=== PATIENT | female | born 1960 | race Caucasian/White ===

== ENCOUNTER 2025-05-16 03:15 | Observation (INO) | payer MEDICARE, OTHER ==
[~2025-05-16] VITALS: Ht 160 cm; Wt 81.9 kg
[2025-05-16] VITALS (12 sets, daily range): BP systolic 109–181; BP diastolic 85–129
[2025-05-16 03:51] LABS: BASOPHILS ABSOLUTE AUTO 0.06 K/mm3 (0.00-0.23); BASOPHILS PERCENT AUTO 0 % (0-2); EOSINOPHILS ABSOLUTE AUTO 0.06 K/mm3 (0.00-0.68); EOSINOPHILS PERCENT AUTO 0 % (0-6); Hematocrit 46.6 % (33.0-51.0); Hemoglobin 15.4 g/dL (11.5-16.0); IMMATURE GRAN ABSOLUTE AUTO 0.05 K/mm3 (0.00-0.10); IMMATURE GRAN PERCENT AUTO 0 % (0-1); LYMPHOCYTES ABSOLUTE AUTO 1.97 K/mm3 (0.84-5.20); LYMPHOCYTES PERCENT AUTO 13 % (21-46); MONOCYTES ABSOLUTE AUTO 0.70 K/mm3 (0.16-1.47); MONOCYTES PERCENT AUTO 5 % (4-13); Mean Corpuscular HGB Conc 33.0 g/dL (31.5-36.5); Mean Corpuscular Volume 90 fL (80-100); NEUTROPHILS ABSOLUTE AUTO 12.38 K/mm3 (1.96-9.15); NEUTROPHILS PERCENT AUTO 81 % (41-73); NRBC ABSOLUTE 0.00 K/mm3 (0.00-0.02); NRBC Auto 0.0 /100 WBC (0.0-0.2); Platelet Count 343 K/mm3 (150-400); RDW Coefficient Variation 12.5 % (11.7-14.2); RDW Standard Deviation 41.3 fL (35.1-46.3)
[2025-05-16 04:06] LABS: Prothrombin Time Results 11.2 Sec (9.7-11.5)
[2025-05-16 04:08] LABS: Alanine Aminotransfer (ALT/SGP 24.0 U/L (12-78); Albumin, Blood 3.8 g/dL (3.4-5.0); Albumin/Globulin Ratio 1.1 (0.8-1.8); Anion Gap 9.0 mmol/L (3-11); Aspartate Aminotrans (AST/SGOT 51.0 U/L (12-37); Bilirubin, Total 0.6 mg/dL (0.1-1.0); Blood Urea Nitrogen 17.0 mg/dL (8-24); CO2, Blood 25.0 mmol/L (21-32); Calcium, Blood 8.9 mg/dL (8.5-10.1); Chloride, Blood 106.0 mmol/L (98-108); Creatinine, Blood 0.93 mg/dL (0.40-1.00); Globulin, Blood 3.4 g/dL (2.2-4.0); Glucose, Blood 125.0 mg/dL (70-99); Magnesium, Blood 2.2 mg/dL (1.6-2.4); Phosphorus, Blood 3.6 mg/dL (2.5-4.9); Potassium, Blood 4.0 mmol/L (3.5-5.5); Sodium, Blood 136.0 mmol/L (136-145); Total Protein, Blood 7.2 g/dL (6.4-8.2)
[2025-05-16] MEDS ORDERED: FentaNYL Citrate 50 MCG/ML 2 ML Injection IV PRN (05:05)
[2025-05-16] MEDS ORDERED: FLU VACC TS2025(65UP)/MF59C/PF 45 MCG/0.5 ML SYRINGE IM SCH (05:05)
[2025-05-16] MEDS ORDERED: NS 1,000 ML IV SCH (05:10)
[2025-05-16] MEDS ORDERED: Ondansetron HCl 2 MG / ML 2ML Vial IV PRN (05:10)
[2025-05-16] MEDS ORDERED: Heparin Sodium 5000 Units/ML 1ML MDV IV ONE (05:25)
[2025-05-16] MEDS ORDERED: Heparin Sodium,Porcine/0.5 NS 500 ML IV SCH (05:25)
--- NOTE | 2025-05-16 07:10 | NUR ---
ASSUMPTION OF CARE PATIENT ARRIVED FROM ED VIA GURNEY AT 0710, ALL PERSONAL BELONGINGS WITH PATIENT. PATIENT HYPERTENSIVE, REPORTING MODERATE TO SEVERE SUBSTERNAL CHEST PAIN THAT RADIATES POSTERIORLY ACROSS BILATERAL SHOULDERS. TELE IN PLACE, SINUS RHYTHM 80'S. SPO2 >90% ON RA, PATIENT REPORTS SHORTNESS OF BREATH SINCE ARRIVAL TO HOSPITAL. DENIES HEADACHE, N/V. TO MEDICATED PER EMAR FOR CHEST PAIN. PATIENT IS LYING IN BED, BED IN LOWEST POSITION, CALL LIGHT WITHIN REACH.
[2025-05-16] MEDS ORDERED: LOSA50 PO (08:11)
[2025-05-16] MEDS ORDERED: PENVK500 PO (08:12)
[2025-05-16] MEDS ORDERED: Penicillin V P500 MG PO (08:12)
[2025-05-16 11:21] LABS: CHOL/HDL RATIO 2.5; Cholesterol 190 mg/dL (50-200); HDL Cholesterol 75 mg/dL (>39); LDL/HDL RATIO 1.1; Low Density Lipoprotein Chol 80 mg/dL (0-110); Thyroid Stimulating Hormone 3.760 uIU/mL (0.360-4.800); Triglycerides 177 mg/dL (30-160); Very Low Density Lipoprot Chol 35 mg/dL (6-32)
[2025-05-16] MEDS ORDERED: Nitroglycerin 2 MG/20 ML BTL ONE (11:46)
[2025-05-16] MEDS ORDERED: Heparin Sodium 1000 Units/ML 10ML MDV ONE ×3 (11:46→13:06)
[2025-05-16] MEDS ORDERED: NS 1,000 ML IV ONE ×2 (11:46→12:00)
[2025-05-16] MEDS ORDERED: NS 250 ML IV ONE (11:46)
[2025-05-16] MEDS ORDERED: Verapamil HCL 2.5 MG/ML 2ML Injection ONE (11:46)
--- NOTE | 2025-05-16 11:48 | NUR ---
RUBBER INSULATOR PATIENT TO RUBBER INSULATOR ACCOMPANIED BY KIN JONES. VITAL SIGNS OBTAINED, HEPARIN GTT STOPPED, PATIENT IN NO SIGNS OF DISTRESS. PATIENT LEFT UNIT VIA HOSPITAL BED AT 1148.
[2025-05-16] MEDS ORDERED: Ondansetron HCl 2 MG / ML 2ML Vial ONE (11:59)
[2025-05-16] MEDS ORDERED: FentaNYL Citrate 50 MCG/ML 2 ML Injection ONE (12:00)
[2025-05-16] MEDS ORDERED: Midazolam HCl 1MG / ML 2ML Vial ONE (12:00)
[2025-05-16] MEDS ORDERED: HydrALAZINE HCl 20 MG / ML 1ML Vial ONE (12:12)
[2025-05-16] MEDS ORDERED: NS 500 ML IV ONE (12:46)
--- NOTE | 2025-05-16 14:52 | NUR ---
UPDATE PATIENT ARRIVED BACK TO UNIT FROM TEMPORARY OFFICE ASSISTANT AT 1445. RIGHT TR BAND IN PLACE, 8ML AIR IN BAND PER HC RN. RIGHT GROIN SITE, TEGADERM IN PLACE, SOME FIRMNESS FELT AT SITE, AREA IS NONTENDER. PATIENT LYING FLAT, VSS, PATIENT DENIES CHEST PAIN OR PRESSURE, DENIES SHORTNESS OF BREATH.
--- NOTE | 2025-05-16 19:18 | NUR ---
SHIFT SUMMARY PATIENT IS ALERT AND ORIENTED, ABLE TO FOLLOW COMMANDS AND MAKE NEEDS KNOWN. TELE IN PLACE, SINUS RHYTHM 80'S, HYPERTENSIVE THIS SHIFT, NEW ORDERS RECEIVED. SPO2 >90% ON RA. PATIENT TO ANGIO THIS SHIFT, R RADIAL ACCESS SITE, TR BAND RECOVERED, RIGHT FEMORAL SITE. SLIGHT BRUISING NOTED TO RIGHT FEMORAL SITE, AREA SLIGHTLY FIRM. PATIENT DENIES CHEST PAIN AT END OF SHIFT, REPORTS IMPROVED SHORTNESS OF BREATH. NAUSEA POST ANGIO, PATIENT OFFERED MEDICATION PER EMAR, PATIENT REFUSED. PATIENT IS LYING IN BED, BED IN LOWEST POSITION, CALL LIGHT WITHIN REACH.
--- NOTE | 2025-05-16 20:43 | NUR ---
ASSUMPTION OF CARE THIS RN ASSUMED CARE OF PATIENT AT 1900. PT A&O X4. ASSESSED RT FEMORAL AND RADIAL ANGIO SITES WITH DAYSHIFT RN'S AT BEDSIDE DURING SHIFT REPORT. RT FEMORAL SITE WITH SMALL AMOUNT OF UNCHANGED BLEEDING ON DRESSING. MILD UNCHANGED BRUISING AND HEMATOMA NOTED, TENDER WITH PALPATION. PT BEING RAISED IN INCREMENTS OF 15 DEGREES AT THIS TIME. PULSES STRONG DISTALLY. RT RADIAL SITE FULL DEFLATED BY DAYSHIFT. SMALL HEMATOMA AND BRUISING PROXIMAL AND DISTAL TO PUNCTURE SITE. TR BAND REMOVED AT 2014 PER PROTOCOL. TEGADERM PLACED. NO CHANGES TO SITE/HEMATOMAS AT THIS TIME. MILD TENDERNESS WITH PALPATION. WRIST IMMOBILIZER IN PLACE. PT VERBALIZED UNDERSTANDING RESTRICTIONS OF MOVEMENT/BENDING OF WRIST. SR ON MONITOR. ON RA WITH SPO2 >90%. DENIES CHEST PAIN/PRESSURE. AFEBRILE. BP STABLE. BED IN LOWEST POSITION AND CALL LIGHT WITHIN REACH.
[2025-05-17 00:01] VITALS: BP 105/86
[2025-05-17 03:15] VITALS: BP 120/87
--- NOTE | 2025-05-17 04:31 | NUR ---
SHIFT SUMMARY SEE PREVIOUS NOTE PT CONTINUES TO HAVE HEMATOMA TO RT FEMORAL ACCESS SITE. DRESSING C/D/I. BRUISING MORE PRONOUNCED BUT HEMATOMA IS UNCHANGED. RT RADIAL SITE WITH SMALL OOZING ON DRESSING, OTHERWISE C/D/I. SMALL HEMATOMAS DISTAL AND PROXIMAL TO SITE UNCHANGED. BRUISING UNCHANGED. PT REPORTS TENDERNESS TO PALPATION WITH BOTH. ARMBOARD IN PLACE. PT CONTINUES TO VERBALIZE UNDERSTANDING OF RESTRICTIONS. OTHERWISE VSS. NEEDING 1L VIA NC TO MAINTAIN SPO2 >92% WHILE SLEEPING. PT ABLE TO REPOSITION SELF INDEPENDENTLY. AMBULATED TO BATHROOM WELL WITH SBA. DENIED CHEST PAIN/PRESSURE T/O THIS SHIFT. EKG TO BE DONE PRIOR TO SHIFT CHANGE. BED IN LOWEST POSITION AND CALL LIGHT WITHIN REACH. THIS RN WILL REPORT TO ONCOMING DAYSHIFT RN.
[2025-05-17 04:35] LABS: BASOPHILS ABSOLUTE AUTO 0.04 K/mm3 (0.00-0.23); BASOPHILS PERCENT AUTO 0 % (0-2); EOSINOPHILS ABSOLUTE AUTO 0.00 K/mm3 (0.00-0.68); EOSINOPHILS PERCENT AUTO 0 % (0-6); Hematocrit 39.6 % (33.0-51.0); Hemoglobin 13.2 g/dL (11.5-16.0); IMMATURE GRAN ABSOLUTE AUTO 0.06 K/mm3 (0.00-0.10); IMMATURE GRAN PERCENT AUTO 0 % (0-1); LYMPHOCYTES ABSOLUTE AUTO 2.06 K/mm3 (0.84-5.20); LYMPHOCYTES PERCENT AUTO 13 % (21-46); MONOCYTES ABSOLUTE AUTO 1.48 K/mm3 (0.16-1.47); MONOCYTES PERCENT AUTO 10 % (4-13); Mean Corpuscular HGB Conc 33.3 g/dL (31.5-36.5); Mean Corpuscular Volume 88 fL (80-100); NEUTROPHILS ABSOLUTE AUTO 11.88 K/mm3 (1.96-9.15); NEUTROPHILS PERCENT AUTO 77 % (41-73); NRBC ABSOLUTE 0.00 K/mm3 (0.00-0.02); NRBC Auto 0.0 /100 WBC (0.0-0.2); Platelet Count 294 K/mm3 (150-400); RDW Coefficient Variation 12.9 % (11.7-14.2); RDW Standard Deviation 42.0 fL (35.1-46.3)
[2025-05-17 05:01] LABS: Alanine Aminotransfer (ALT/SGP 55.0 U/L (12-78); Albumin, Blood 3.1 g/dL (3.4-5.0); Albumin/Globulin Ratio 1.1 (0.8-1.8); Anion Gap 10.0 mmol/L (3-11); Aspartate Aminotrans (AST/SGOT 376.0 U/L (12-37); Bilirubin, Total 1.0 mg/dL (0.1-1.0); Blood Urea Nitrogen 16.0 mg/dL (8-24); CO2, Blood 23.0 mmol/L (21-32); Calcium, Blood 8.4 mg/dL (8.5-10.1); Chloride, Blood 107.0 mmol/L (98-108); Creatinine, Blood 0.77 mg/dL (0.40-1.00); Globulin, Blood 2.9 g/dL (2.2-4.0); Glucose, Blood 110.0 mg/dL (70-99); Potassium, Blood 3.7 mmol/L (3.5-5.5); Sodium, Blood 136.0 mmol/L (136-145); Total Protein, Blood 6.0 g/dL (6.4-8.2)
[2025-05-17 07:39] VITALS: BP 109/85
[2025-05-17 10:26] LABS: CHOL/HDL RATIO 2.0; Cholesterol 134 mg/dL (50-200); HDL Cholesterol 66 mg/dL (>39); LDL/HDL RATIO 0.7; Low Density Lipoprotein Chol 49 mg/dL (0-110); Triglycerides 95 mg/dL (30-160); Very Low Density Lipoprot Chol 19 mg/dL (6-32)
[2025-05-17 11:16] VITALS: BP 106/65
[2025-05-17] MEDS ORDERED: ASPI81CH PO (11:35)
[2025-05-17] MEDS ORDERED: LIPITOR80 MG PO (11:36)
[2025-05-17] MEDS ORDERED: Carvedilol12.5 MG PO (11:36)
[2025-05-17] MEDS ORDERED: CLOP75 PO (11:36)
[2025-05-17] MEDS ORDERED: NITR.4SL SL (11:39)
--- NOTE | 2025-05-17 11:52 | NUR ---
Upon receiving a referral for spiritual care, I visited the patient. She tells me about the events that led to admission to the hospital, how grateful she is to be alive, and about her spiritual journey. She also speaks about how wonderful the clinical staff has been to her in providing compassionate, excellent care. I encourage self-care, and provided therapeutic listening and encouragement. She responded well and showed signs of greater peace.
--- NOTE | 2025-05-17 11:55 | NUR ---
ASSUMED CARE OF PT @0700. VSS AXO4. RADIAL SITE TO R WRIST WITH SOFT HEMATOMA. R GROIN SITE BRUSISED WITH SOFT HEMTOMA - BOTH SITES NONPAINFUL TO PALPATION. PT DENYING CP/PRESSURE. CARDIOLOGY CLEARED PT FOR DC WELL HOSPITALIST PROVIDER. CARE MANAGEMENT ATTEMPTING TO SECURE TRANSPORT HOME NOW. DC PACKET COMPLETED, WILL BE PROVIDING DC EDUCATION NOW.
--- NOTE | 2025-05-17 13:09 | NUR ---
DC'D @1243 DC INSTRIUCTIONS PROVIDED. IV PULLED. TELE REMPOVED. NO ACUTE CHANGES POST ASSUMPTION OF CARE NOTE. PT CONTINUED TO DENY CP/PRESSURE. VOICED UNDERSTANDING ON DC INSTRUCTIUONS. PT DC'D WITH TRANSPORT AND OUT OF ROOM @1243.
== END 2025-05-17 12:40 | disposition home or self-care (01) ==
LOC: ER 03:15 → PCU 03:16
PROVIDERS: Emergency Medicine; Student in an Organized Health Care Education/Training Program; ADMIT Internal Medicine
DX: I21.4 Non-ST elevation (NSTEMI) myocardial infarction (principal); I10 Essential (primary) hypertension; E78.5 Hyperlipidemia, unspecified; K02.9 Dental caries, unspecified; F17.210 Nicotine dependence, cigarettes, uncomplicated; Z79.899 Other long term (current) drug therapy
CPT/HCPCS: 36415; 37252; 71045; 76937; 80053; 80061; 83036; 83735; 83880; 84100; 84443; 84484; 85025; 85347; 85520; 85610; 85730; 93005; 93010; 93306; 93454; 93458; 93571; 93572; 96365-59; 96366-59; 96375; 99152; 99153; 99285-25; A9270; C1725; C1753; C1760; C1769; C1874; C1887; C1894; C9600; G0378; J0360; J1644; J2250; J2405; J3010; J7030; J7040; J7050; Q9967